=== PATIENT | male | born 1950 | race Caucasian/White ===

== ENCOUNTER → 2016-12-09 | Outpatient (CLI) | payer OTHER, MEDICARE ==
[~2016-12-09] MED LIST: ASCO500T3 PO; ASPCH81X PO; CHOL100010 PO; MULT-506 PO
[2016-12-09 11:12] LABS: BASO % 1.6 %; BASO ABS # 0.07 K/uL (0-0.2); COMPLETE YES; EOS % 5.5 %; HEMATOCRIT 38.5 % (42-52); LYMPH % 34.5 %; MEAN CELL VOLUME 91.2 fL (80-100); MEAN CORPUSCULAR HEMOGLOBIN 31.3 pg (25-34); MEAN CORPUSCULAR HGB CONC 34.3 g/dl (32-36); MEAN PLATELET VOLUME 8.9 fL (7.4-10.4); MONO % 11.3 %; NEUT % 47.1 %; PLATELET COUNT 225 K/uL (130-400); RED BLOOD COUNT 4.22 M/uL (4.7-6.1); WHITE BLOOD COUNT 4.35 K/uL (4.8-10.8)
[2016-12-09 11:31] LABS: ALT/SGPT 25 U/L (12-78); BLOOD UREA NITROGEN 17 mg/dl (7-18); BUN/CREATININE RATIO 16.7 (10-20); CALCIUM 8.9 mg/dl (8.5-10.1); CARBON DIOXIDE 30 mmol/L (21-32); CHLORIDE 106 mmol/L (98-107); CREATININE 0.99 mg/dl (0.60-1.40); GLUCOSE 102 mg/dl (70-99); POTASSIUM 4.7 mmol/L (3.5-5.1); SODIUM 141 mmol/L (136-145)
[2016-12-09 11:33] LABS: ALB/GLOB RATIO 1.1 (0.9-2); ALKALINE PHOSPHATASE 48 U/L (45-117); AST/SGOT 23 U/L (15-37)
[2016-12-09 12:20] LABS: URINE APPEARANCE CLEAR (CLEAR); URINE BILIRUBIN NEG (NEG); URINE COLOR YELLOW; URINE EPITHELIAL CELL AUTO 0-5 /lpf (0-5); URINE NITRITE NEG (NEG); URINE PH 5.5 (4.5-7.5); URINE SPECIFIC GRAVITY 1.005 (1.000-1.030); UROBILINOGEN NEG (NEG); ZZUR CULT IF INDIC CLEAN CATCH NO
[2016-12-09 12:28] LABS: MANUAL MICROSCOPIC REQUIRED? NO; REVIEW REQ? NO
== END | disposition home or self-care (01) ==
LOC: C.LAB1850 10:04
PROVIDERS: ATTEND Internal Medicine
DX: Z11.59 Encounter for screening for other viral diseases (principal); K40.20 Bilateral inguinal hernia, without obstruction or gangrene, not specified as recurrent

== ENCOUNTER → 2017-01-20 | Outpatient (CLI) | payer OTHER, MEDICARE ==
[2017-01-20 15:00] LABS: BASO % 0.9 %; BASO ABS # 0.04 K/uL (0-0.2); COMPLETE YES; EOS % 3.6 %; HEMATOCRIT 36.5 % (42-52); LYMPH % 37.6 %; LYMPH ABS # 1.67 K/uL (1.2-3.4); MEAN CORPUSCULAR HEMOGLOBIN 31.7 pg (25-34); MEAN CORPUSCULAR HGB CONC 34.8 g/dl (32-36); MEAN PLATELET VOLUME 9.1 fL (7.4-10.4); NEUT % 48.9 %; PLATELET COUNT 242 K/uL (130-400); RED BLOOD COUNT 4.01 M/uL (4.7-6.1); WHITE BLOOD COUNT 4.44 K/uL (4.8-10.8)
[2017-01-20 15:29] LABS: TOTAL IRON BINDING CAPACITY 254 mcg/dl (250-450)
== END | disposition home or self-care (01) ==
LOC: C.LAB1850 13:53
PROVIDERS: ATTEND Internal Medicine
DX: D64.9 Anemia, unspecified (principal)

== ENCOUNTER → 2017-12-26 | Outpatient (CLI) | payer OTHER, MEDICARE ==
[2017-12-26 16:18] LABS: BASO ABS # 0.05 K/uL (0-0.2); EOS % 2.6 %; EOS ABS # 0.13 K/uL (0-0.5); HEMATOCRIT 40.5 % (42-52); LYMPH % 29.1 %; LYMPH ABS # 1.48 K/uL (1.2-3.4); MEAN CELL VOLUME 93.3 fL (80-100); MEAN CORPUSCULAR HEMOGLOBIN 32.3 pg (25-34); MEAN CORPUSCULAR HGB CONC 34.6 g/dl (32-36); MEAN PLATELET VOLUME 9.1 fL (7.4-10.4); MONO % 8.1 %; MONO ABS # 0.41 K/uL (0.11-0.59); NEUT % 59.2 %; NEUT ABS # 3.01 K/uL (1.4-6.5); PLATELET COUNT 252 K/uL (130-400); RED CELL DISTRIBUTION WIDTH CV 12.6 % (11.5-14.5); RED CELL DISTRIBUTION WIDTH SD 43.4 fL (36.4-46.3); WHITE BLOOD COUNT 5.08 K/uL (4.8-10.8)
[2017-12-26 16:44] LABS: BLOOD UREA NITROGEN 17 mg/dl (7-18); CALCIUM 9.2 mg/dl (8.5-10.1); CARBON DIOXIDE 29 mmol/L (21-32); CREATININE 0.99 mg/dl (0.60-1.40); GLUCOSE 97 mg/dl (70-99); POTASSIUM 4.3 mmol/L (3.5-5.1); SODIUM 138 mmol/L (136-145)
== END | disposition home or self-care (01) ==
LOC: C.LAB1850 15:21
PROVIDERS: ATTEND Internal Medicine
DX: D64.9 Anemia, unspecified (principal); R03.0 Elevated blood-pressure reading, without diagnosis of hypertension